=== PATIENT | male | born 1945 | race Caucasian/White ===

== ENCOUNTER → 2021-08-06 | Outpatient (CLI) | payer MEDICARE ==
[~2021-08-06] MED LIST: APIX5TAB PO; ASPI-482 PO; ATOR40TA59 PO; DILT30TA26 PO; GABA300C18 PO; GABA300S PO; MAGN400T48 PO; SOTA120T PO; TIMO10DR5 EACHEYE; TRIA1TAB3 PO
[2021-08-06 14:24] VITALS: BP 117/79
[2021-08-06 14:29] VITALS: BP 114/72
[2021-08-06 14:34] VITALS: BP 118/79
[2021-08-06 14:39] VITALS: BP 123/72
[2021-08-06 14:44] VITALS: BP 121/73
[2021-08-06 14:49] VITALS: BP 114/77
--- NOTE | 2021-08-06 14:58 | NUR ---
RJ from [employer] present to change patient's pacemaker to safe mode for scan. DOO setting with a lower limit of 90. Patient's vital signs remained stable throughout study. No problems noted. Once study completed, RJ with [employer] returned patient's pacemaker settings to baseline.
--- NOTE | 2021-08-07 09:17 | RAD ---
EXAMINATION: MRI RIGHT SHOULDER WITHOUT IV CONTRAST CLINICAL HISTORY: Right shoulder pain concerning for biceps tendon rupture/rotator cuff tear. TECHNIQUE: Multiplanar multisequential images obtained through the shoulder without intravenous contr ast. COMPARISON: Right shoulder radiograph same day FINDINGS: TENDONS: - Supraspinatus: Full-thickness essentially full width tear with few posterior fibers potentially re maining intact. Bulk of the tendon retracted to the medial humeral head. - Infraspinatus: Low-grade articular sided fraying involving nearly the full width of the tendon and moderate tendinosis. - Subscapularis: Small high-grade partial-thickness articular sided tear in the superior fibers. - Teres Minor: Within normal limits. - Biceps Tendon: Long head biceps tendon appears grossly intact but is severely diminutive, likely re lated to chronic high-grade partial-thickness tearing. MUSCLES: Partially visualized mild edema in the posterior supraspinatus muscle. Minimal edema in the infraspinatus muscle near the myotendinous junction. Muscle bulk maintained. LABRUM: Labral degeneration involving the superior, posterior, and inferior labrum with degenerative tearing in the posterior inferior labrum. GLENOHUMERAL JOINT: - Joint Fluid: No significant joint effusion. - Cartilage: No full-thickness chondral defect visualized. ACROMIOCLAVICULAR JOINT: Moderate hypertrophic degenerative changes. BONES/MARROW: No evidence of acute fracture. Nonspecific 1.3 x 1.3 x 2.0 cm (AP x TRV x CC) focus of intermediate T1 and T2 signal in the proximal humeral diaphysis, possibly an island of hematopoietic marrow. IMPRESSION: Retracted full-thickness tear in the supraspinatus tendon, small high-grade partial-thickness tear in the subscapularis tendon, and low-grade fraying in the infraspinatus tendon as described. Nonspecific focal marrow signal changes in the proximal humerus, possibly an island of hematopoietic marrow. Electronically signed by: Darnell Dee DO (08/07/2021 9:15 AM) [id number]
--- NOTE | 2021-08-07 14:18 | RAD ---
Exam Date: 08/06/2021 1:49 PM XR SHOULDER_RIGHT 2+ VIEWS Indication: Reason: INJURY TO RIGHT SHOULDER. / Spl. Instructions: / History: . FINDINGS/ IMPRESSION: No acute fracture or dislocation. Moderate degenerative changes are noted. Alignment is maintained. The soft tissues are within normal limits. Electronically signed by: Colt Palmer MD (08/07/2021 2:16 PM) [id number]
== END ==
LOC: MRI 13:23
PROVIDERS: ATTEND Orthopaedic Surgery
DX: S46.011A Strain of muscle(s) and tendon(s) of the rotator cuff of right shoulder, initial encounter (principal); R60.0 Localized edema; M19.011 Primary osteoarthritis, right shoulder; M75.101 Unspecified rotator cuff tear or rupture of right shoulder, not specified as traumatic; X58.XXXA Exposure to other specified factors, initial encounter; Y93.89 Activity, other specified; Y92.89 Other specified places as the place of occurrence of the external cause; Y99.8 Other external cause status
CPT/HCPCS: 73030; 73221